=== PATIENT | female | born 1965 | race Caucasian/White ===

== ENCOUNTER 2024-01-12 08:04 | Outpatient (RCR) | payer BC, SELFPAY ==
--- NOTE | 2023-12-20 15:33 | CTCSNOTE_ITS ---
[facility] [address] [place], [place] [address] Simple Simulation Note Date: 12/20/2023 MR#: [id number] Name: DIEGO REEVES : 1965 Port was taken and the field size location and blocks were checked. (A) The port was noted to be in i deal position along with its blocks. Electronically signed by: Jean-Paul Soto MD, FANNYR 12/20/2023 3:31 PM
== END 2024-01-15 23:59 | disposition home or self-care (01) ==
LOC: SCTC 08:04
PROVIDERS: PCP Registered Nurse; Referring Provider Registered Nurse; Visit Provider Internal Medicine Hematology & Oncology
DX: Z51.0 Encounter for antineoplastic radiation therapy (principal); C50.512 Malignant neoplasm of lower-outer quadrant of left female breast; Z17.0 Estrogen receptor positive status [ER+]; Z17.32 Human epidermal growth factor receptor 2 negative status; Z17.21 Progesterone receptor positive status; Z90.12 Acquired absence of left breast and nipple
CPT/HCPCS: 77280; 77290; 77300; 77332; 77336; 77412; 77417

== ENCOUNTER 2024-02-02 08:19 | Outpatient (RCR) | payer BC, SELFPAY ==
--- NOTE | 2024-01-20 15:03 | CTCTRTNOTE_ITS ---
[facility] [address], [place] [address] Weekly Management Date: 01/20/2024 ?? Name: DIEGO LALA Meeks.: 1965 [id number] A. Patient is currently at 400 cGy.E boost B. Patient is tolerating treatment well. C. Completes XRT later thi week Electronically signed by: Jean-Paul Soto M.D. 01/20/2024 3:00 PM
== END 2024-02-15 23:59 | disposition home or self-care (01) ==
LOC: SCTC 08:19
PROVIDERS: PCP Registered Nurse; Referring Provider Registered Nurse; Visit Provider Internal Medicine Hematology & Oncology
DX: Z51.0 Encounter for antineoplastic radiation therapy (principal); C50.512 Malignant neoplasm of lower-outer quadrant of left female breast; Z90.12 Acquired absence of left breast and nipple; Z17.0 Estrogen receptor positive status [ER+]; Z17.21 Progesterone receptor positive status; Z17.32 Human epidermal growth factor receptor 2 negative status
CPT/HCPCS: 77336; 77412; 99212; G0463

== ENCOUNTER → 2024-02-22 | Outpatient (CLI) | payer BC, SELFPAY | END | disposition home or self-care (01) | LOC: SLDO 11:58 | PROVIDERS: PCP Nurse Practitioner Family; Referring Provider Nurse Practitioner Family; Visit Provider Nurse Practitioner Family | DX: N39.0 Urinary tract infection, site not specified (principal) | CPT/HCPCS: 87086; 87186 ==

== ENCOUNTER → 2024-05-23 | Outpatient (CLI) | payer BC, SELFPAY ==
[2024-05-23 08:39] LABS: Basophils % (Auto) 1 % (0-2.5); Eosinophils # (Auto) 0.1 Thou/mm3 (0.0-0.5); Eosinophils % (Auto) 3 % (0-10); Hematocrit 34.2 % (36.0-46.0); Hemoglobin 11.7 g/dL (12.0-16.0); Immature Granulocytes % (Auto) 0 % (0-0); Immature Granulocytes Auto 0.01 Thou/mm3 (0.00-0.00); Lymphocytes # (Auto) 0.9 Thou/mm3 (1.0-4.8); Lymphocytes % (Auto) 22 % (10-50); Mean Corpuscular HGB Conc 34.2 g/dl (31.0-37.0); Mean Corpuscular Hemoglobin 32.7 pg (25.0-35.0); Mean Corpuscular Volume 96 fL (80-100); Monocytes # (Auto) 0.4 Thou/mm3 (0.0-0.8); Monocytes % (Auto) 10 % (0-12); Neutrophils # (Auto) 2.4 Thou/mm3 (1.8-7.7); Neutrophils % (Auto) 64 % (37-80); Nucleated Red Blood Cell % 0 /100 WBC (0); Platelet Count 272 Thou/mm3 (140-440); Red Blood Count 3.58 Miln/mm3 (4.00-5.20); White Blood Count 3.8 Thou/mm3 (3.6-11.0)
[2024-05-23 08:56] LABS: Alanine Aminotransferase 12 U/L (10-49); Albumin, Serum 4.4 gm/dL (3.5-5.0); Alkaline Phosphatase 65 U/L (46-116); Anion Gap 8 (7-16); Aspartate Amino Transferase 17 U/L (0-34); BUN/Creatinine Ratio 14 Ratio (12-20); Bilirubin,Total 0.6 mg/dL (0.3-1.2); Blood Urea Nitrogen 14 mg/dL (9-23); Calcium 10.6 mg/dL (8.3-10.6); Calcium (Corrected) 10.6 mg/dL (8.5-10.1); Chloride 102 mMol/L (98-107); Globulin 2.2 gm/dL (2.3-3.5); Glucose 98 mg/dL (74-106); Osmolality,Calculated 274 (275-295); Potassium 4.6 mMol/L (3.4-5.1); Sodium 137 mMol/L (136-145); Total Protein 6.6 gm/dL (5.7-8.2); eGFR > 60 See Note
== END | disposition home or self-care (01) ==
PROVIDERS: PCP Family Medicine; Referring Provider Internal Medicine Hematology & Oncology; Visit Provider Internal Medicine Hematology & Oncology
DX: C50.512 Malignant neoplasm of lower-outer quadrant of left female breast (principal)
CPT/HCPCS: 36415; 80053; 85025

== ENCOUNTER 2024-07-05 15:45 | Outpatient (RCR) | payer BC, SELFPAY ==
--- NOTE | 2024-07-12 01:10 | CTCFLWUP_ITS ---
Patient: TOI REEVES : 1965 Page 2 of 2 FOLLOW UP NOTE DATE OF SERVICE: 07/05/2024 NAME: TOI REEVES ACCOUNT: [id number] : 1965 AGE: 58 INTERVAL HISTORY: Subjective: Chief Complaint Follow-up for left breast cancer treatment, discussion of medication side effects History of Present Illness toi Flowers, a 58-year-old female with a history of left breast cancer, presents for follow-up after 7 months. She was initially diagnosed with DCIS, underwent surgery with Dr. Scott, and completed 4000 radiation treatments. The patient reports improvement in her symptoms since switching from anastrozole to exemestane for her hormone therapy. She had previously experienced significant discomfort with anastrozole, describing it as making her miserable. The change in medication has resulted in better tolerance, with the patient stating, I think I don't feel as bad. She also mentions a resolution of recurrent urinary tract infections that she had been experiencing. At her last visit, the patient had an infection at the surgical site, which was treated with doxycycline and Betadine. She reports that the infection has now all healed up and notes that the scar is not bad at all. The patient has been compliant with her prescribed calcium and vitamin D3 supplements, as well as taking a multivitamin. The patient's right breast had previously shown an intraductal papilloma, which was non-cancerous. She denies any blood from the nipple and reports that her last mammogram was negative. She continues to undergo regular imaging, with her most recent right breast examination in March. Regarding her overall health, the patient mentions having a little bit of mitral valve prolapse. She also discloses a family history of Marfan-like features, particularly in her son, who is monitored for potential complications. Medications and Supplements - Anastrozole - Discontinued due to making patient miserable - Exemestane - Switched from anastrozole - Patient feeling better on this medication - Doxycycline - Given for infection - Betadine - Applied on skin for infection - Multivitamin - Vitamin D - Taking extra - Calcium Review of Systems Genitourinary: Negative for current urinary tract infections. Musculoskeletal: Positive for hyperextendible joints. Cardiovascular: Positive for mitral valve prolapse. Objective: Physical Examination General: Patient appears younger than stated age of 58. Skin: Healed infection site noted on breast. Scar present between skin lines, not highly visible. Area of previous infection has healed but not as desired. Musculoskeletal: Patient has very tall arms, very long arms. Joints may be hyperextendible. HEENT: Patient has very light eyes. Laboratory, Imaging, and Diagnostic Test Results - Oncotype DX: Score 8 - Tumor size: 1.6 centimeters - Mammogram (04/11/2024): Negative - Previous results: - Mammogram (09/2023): Negative (bilateral) ONCOLOGY HISTORY: DIAGNOSIS: Malignant neoplasm of lower-outer quadrant of left female breast [ICD10] C50.512 Malignant neoplasm of lower-outer quadrant of left female breast [ICD10] C50.512 DATE OF DIAGNOSIS: 09/15/2023 STAGE/TNM: 09/15/2023 left breast lesion needle core biopsy showed invasive lobular carcinoma of breast grade 2 lobular carcinoma in situ 10/22/2023 left breast send additional left new inferior posterior margin partial mastectomy showed invasive lobular carcinoma about 1.6 cm grade 2 low to intermediate nuclear grade ductal carcinoma 0.3 cm also atypical lobular hyperplasia final margins negative for invasive cancer DCIS present 1 mm from the blue inked new inferior margin 2 lymph nodes removed from the left axilla negative T1c N0 TREATMENT HISTORY: Care?Plan Start?Date Cycle Day Intent 11/29/2023 started on anastrozole HISTORY OF PRESENT ILLNESS: Patient is 58-year-old woman. Patient was complaining of lumps in her both breast which after biopsy was found to have cancer in the left breast. Right breast had a benign changes. Patient's Oncotype DX score came back as 8 and cancer was invasive lobular 1.6 cm. As Oncotype score is low no benefit of chemotherapy. Oncology history 09/15/2023 left breast lesion needle core biopsy showed invasive lobular carcinoma of breast grade 2 lobular carcinoma in situ 10/22/2023 left breast send additional left new inferior posterior margin partial mastectomy showed invasive lobular carcinoma about 1.6 cm grade 2 low to intermediate nuclear grade ductal carcinoma 0.3 cm also atypical lobular hyperplasia final margins negative for invasive cancer DCIS present 1 mm from the blue inked new inferior margin 2 lymph nodes removed from the left axilla negative T1c N0 11/16/2023 radiation therapy to the left breast 4000 cGy in 3 weeks with the possibility of boost Oncotype DX score 8 11/29/2023 started on anastrozole OTHER MEDICAL HISTORY/CONDITIONS: Left invasive lobular breast cancer - dx 09/15/23 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 apple cider vinegar - 600 mg 1 Capsule Daily 2. Betadine - 5 % 2 Application Daily 3. Claritin - 10 mg Daily 4. doxycycline hyclate - 100 mg 1 Capsule twice daily 5. exemestane - 25 mg 1 tab Daily 6. Hair Vitamins - 1 tab Twice a Day 7. lisinopril - 5 mg 1 tab Daily 8. metoprolol succinate - 25 mg Daily 9. multivitamin - 1 tab Daily 10. Naprosyn - 500 mg Twice a Day 11. Vitamin D3 - 400 unit 1 Capsule Daily?Palabra Meds? Medications Last Reconciled by Peggy Hawk MA on 07/05/2024 ALLERGIES: No Known Drug Allergies REVIEW OF SYSTEMS: A complete 14-point review of systems was performed and is negative except as noted in interval history. PHYSICAL EXAMINATION: VITAL SIGNS: Temperature?98.2, B/P?106/68, Oxygen?Saturation?96% PAIN: 0 - No pain ECOG Performance Status: 0 - Asymptomatic and fully active GENERAL APPEARANCE: Appears well, in no apparent distress, appropriately interactive. HEENT: Normocephalic, no temporal wasting, normal conjunctiva, no scleral icterus, normal hearing, lips without lesions, neck normal range of motion. CARDIOVASCULAR: Not assessed. PULMONARY: Normal respiratory effort, no respiratory distress or use of accessory muscles, speaking in full sentences, no tachypnea. EXTREMITIES: No pedal edema or cyanosis. SKIN: Normal skin appearance. NEUROLOGIC: Alert and oriented x4. PSHYCHIATRIC: Appropriate affect, mood normal, behavior normal, intact thought and speech. LABORATORY DATA: I have personally reviewed and interpreted each of the patient?s relevant lab tests, abnormal findings are below: Date 05/23/24 ??WHITE?BLOOD?COUNT?(Thou/mm3) 3.8 ??RED?BLOOD?COUNT?(Miln/mm3) 3.58?L ??HEMOGLOBIN?(gm/dl) 11.7?L ??HEMATOCRIT?(%) 34.2?L ??PLATELET?COUNT?(Thou/mm3) 272 ??NEUTROPHILS?%,?AUTO?(%) 64 ??LYMPH?%,?AUTO?(%) 22 ??NEUTROPHILS,?AUTO?(Thou/mm3) 2.4 ??GLUCOSE,RANDOM?(mg/dL) 98 ??BLOOD?UREA?NITROGEN?(mg/dL) 14 ??CREATININE?(mg/dL) 1.00 ??SODIUM?(mmol/L) 137 ??POTASSIUM?(mmol/L) 4.6 ??CHLORIDE?(mmol/L) 102 ??CrCl?(CandG)?(ml/min) 58.56 ??AST/SGOT?(Unit/L) 17 ??ALT/SGPT?(Unit/L) 12 ??ALKALINE?PHOSPHATASE?(Unit/L) 65 ??BILIRUBIN,?TOTAL?(mg/dL) 0.6 ??PROTEIN?TOTAL?(gm/dl) 6.6 ??ALBUMIN,?SERUM?(gm/dl) 4.4 ??GLOBULIN?(gm/dl) 2.2?L ??ALBUMIN/GLOBULIN?RATIO 2.0 ??CALCIUM,?SERUM?(mg/dL) 10.6 ??CALCIUM?SERUM?(CORRECTED)?(mg/dL) 10.6?H ASSESSMENT/PLAN: Assessment and Plan: toi Flowers, a 58-year-old female with a history of left breast cancer (DCIS), status post surgery and radiation, presenting for follow-up and management of hormone therapy side effects. Left Breast Cancer and left breast dcis (DCIS) Assessment: Patient with history of left breast DCIS, and later also invasive cancer status post surgery by Dr. Scott and 4000 radiation. Oncotype DX score was 8, tumor size 1.6 cm, indicating a very low-risk tumor. Recent mammogram in March was negative. Patient switched from anastrozole to exemestane due to intolerable side effects and is tolerating the new medication better. Recent infection at the surgical site has healed well, though there is some residual scarring. Plan: - Continue exemestane for hormone therapy - Apply coconut oil and massage breast daily, avoiding soap on the affected area - Consider tattooing for cosmetic improvement of the scar - Perform [facility] MRD test to monitor for residual cancer cells - Marcella to call patient in 3-4 weeks regarding test approval - Continue calcium and vitamin D supplementation - Perform bone density scan - Follow up in 6 months - Continue monitoring for a total of 10 years Right Breast Intraductal Papilloma Assessment: Patient has a history of non-cancerous intraductal papilloma in the right breast, currently being monitored. No blood noted from the nipple. Last mammogram was negative. Plan: - Continue monitoring as recommended by Dr. Dockery - Next bilateral mammogram scheduled for September Marfan-like Features Assessment: Patient presents with physical characteristics similar to Marfan syndrome, including very long arms and possibly hyperextendible joints. Patient reports a history of mitral valve prolapse. These features suggest a Marfan habitus, though not classic Marfan syndrome. Plan: - Monitor for any joint or cardiovascular symptoms - Advise patient to ensure her son receives appropriate screening and monitoring for Marfan-related conditions High Risk for Sun Damage Assessment: Patient has light-colored eyes, placing her at increased risk for sun damage and potential skin cancers, including melanoma. The [place] area has a high incidence of skin cancers due to sun exposure and environmental factors. Plan: - Educate on sun protection measures, including wearing a sun-brimmed hat - Advise regular skin checks and prompt reporting of any suspicious skin changes RETURN TO CLINIC: BILLING AND COMPLIANCE: I reviewed external records from providers outside my specialty as summarized above. I spent a total of 50 minutes on this patient?s care on the day of their visit excluding time spent related to any billed procedures. This time includes time spent with the patient as well as time spent documenting in the medical record, reviewing patients records and tests, obtaining history, placing orders, communicating with other healthcare professionals, counseling the patient, family or caregiver, and/or care coordination for the diagnoses above. Electronically Signed by: Alfonso Goldsmith MD T: 1:07 AM CC: PCP: Roro Nicole Referring: Roro Nicole This document was completed utilizing speech recognition software. Grammatical errors, random word insertions, pronoun errors, and incomplete sentences are an occasional consequence of this system due to software limitations, ambient noise, and hardware issues. Any formal questions or concerns about the content, text or information contained within the body of this dictation should be directly addressed to the provider for clarification.
== END 2024-07-15 23:59 | disposition home or self-care (01) ==
LOC: SCTC 15:45
PROVIDERS: PCP Family Medicine; Referring Provider Family Medicine; Visit Provider Internal Medicine Hematology & Oncology
DX: C50.512 Malignant neoplasm of lower-outer quadrant of left female breast (principal); Z79.811 Long term (current) use of aromatase inhibitors; Z92.3 Personal history of irradiation; D24.1 Benign neoplasm of right breast
CPT/HCPCS: 99212; G0463

== ENCOUNTER → 2024-07-27 | Outpatient (CLI) | payer BC, SELFPAY ==
[2024-07-27 08:26] LABS: Misc Send Out* See Sep Rpt
[2024-07-27 08:48] LABS: Basophils % (Auto) 0 % (0-2.5); Eosinophils # (Auto) 0.1 Thou/mm3 (0.0-0.5); Eosinophils % (Auto) 2 % (0-10); Hematocrit 31.8 % (36.0-46.0); Hemoglobin 11.6 g/dL (12.0-16.0); Immature Granulocytes % (Auto) 0 % (0-0); Immature Granulocytes Auto 0.01 Thou/mm3 (0.00-0.00); Lymphocytes % (Auto) 22 % (10-50); Mean Corpuscular HGB Conc 36.5 g/dl (31.0-37.0); Mean Corpuscular Volume 91 fL (80-100); Monocytes # (Auto) 0.4 Thou/mm3 (0.0-0.8); Monocytes % (Auto) 8 % (0-12); Neutrophils # (Auto) 3.2 Thou/mm3 (1.8-7.7); Neutrophils % (Auto) 68 % (37-80); Nucleated Red Blood Cell % 0 /100 WBC (0); Platelet Count 266 Thou/mm3 (140-440); Red Blood Count 3.51 Miln/mm3 (4.00-5.20); White Blood Count 4.7 Thou/mm3 (3.6-11.0)
== END | disposition home or self-care (01) ==
PROVIDERS: PCP Family Medicine; Referring Provider Internal Medicine Hematology & Oncology; Visit Provider Internal Medicine Hematology & Oncology
DX: C50.512 Malignant neoplasm of lower-outer quadrant of left female breast (principal)
CPT/HCPCS: 36415; 85025

== ENCOUNTER 2024-08-09 08:52 | Outpatient (RCR) | payer BC, SELFPAY ==
--- NOTE | 2024-08-09 13:57 | CTCFLWUP_ITS ---
[facility] [address], [place] [address] FOLLOW-UP NOTE Date: 08/09/2024 MR#: [id number] Name: DIEGO REEVES : 1965 Dx: C50.512 Malignant neoplasm of lower-outer quadrant of left female breast Identification. Stage IA ([id number]) receptor positive HER2 not overexpressed invasive lobular carcinoma left breast status post tylectomy 2 sentinel nodes mammoplasty 10/22/2023. Oncotype DX 8 Completed postop XRT 4000 cGy plus E boost. Completed 01/20/2024. Tolerated treatment well and as I see patient today there is good cosmetic appearance of the treated breast. Currently taking exemestane under Dr. Goldsmith's direction. Good cosmetic reaction of the prior radiation therapy with no sign of recurrence. I will see her as needed in the future. Electronically signed by: Jean-Paul Soto M.D. 08/09/2024 1:55 PM
== END 2024-08-14 23:59 | disposition home or self-care (01) ==
LOC: SCTC 08:52
PROVIDERS: PCP Family Medicine; Referring Provider Family Medicine; Visit Provider Radiology Therapeutic Radiology
DX: C50.512 Malignant neoplasm of lower-outer quadrant of left female breast (principal); Z17.0 Estrogen receptor positive status [ER+]; Z17.21 Progesterone receptor positive status; Z17.32 Human epidermal growth factor receptor 2 negative status; Z92.3 Personal history of irradiation; Z79.811 Long term (current) use of aromatase inhibitors
CPT/HCPCS: 99213; G0463

== ENCOUNTER → 2025-01-08 | Outpatient (CLI) | payer BC, SELFPAY ==
[2025-01-08 08:33] LABS: Basophils # (Auto) 0.0 Thou/mm3 (0.0-0.2); Basophils % (Auto) 0 % (0-2.5); Eosinophils # (Auto) 0.0 Thou/mm3 (0.0-0.5); Eosinophils % (Auto) 1 % (0-10); Hematocrit 36.2 % (36.0-46.0); Hemoglobin 12.4 g/dL (12.0-16.0); Immature Granulocytes Auto 0.01 Thou/mm3 (0.00-0.00); Lymphocytes # (Auto) 1.0 Thou/mm3 (1.0-4.8); Lymphocytes % (Auto) 18 % (10-50); Mean Corpuscular HGB Conc 34.3 g/dl (31.0-37.0); Mean Corpuscular Hemoglobin 31.7 pg (25.0-35.0); Mean Corpuscular Volume 93 fL (80-100); Monocytes # (Auto) 0.3 Thou/mm3 (0.0-0.8); Monocytes % (Auto) 6 % (0-12); Neutrophils # (Auto) 4.1 Thou/mm3 (1.8-7.7); Neutrophils % (Auto) 75 % (37-80); Nucleated Red Blood Cell # 0.00 Thou/mm3 (0.00-0.00); Nucleated Red Blood Cell % 0 /100 WBC (0); Platelet Count 281 Thou/mm3 (140-440); RDW Standard Deviation 42.3 fL (36.4-46.3); Red Blood Count 3.91 Miln/mm3 (4.00-5.20); White Blood Count 5.4 Thou/mm3 (3.6-11.0)
[2025-01-08 08:59] LABS: Alanine Aminotransferase 12 U/L (10-49); Albumin, Serum 4.7 gm/dL (3.4-4.8); Albumin/Globulin Ratio 2.2 (1.2-2.2); Alkaline Phosphatase 75 U/L (46-116); Anion Gap 9 (7-16); Aspartate Amino Transferase 18 U/L (0-34); BUN/Creatinine Ratio 10 Ratio (12-20); Bilirubin,Total 0.4 mg/dL (0.3-1.2); Blood Urea Nitrogen 10 mg/dL (9-23); Calcium 10.2 mg/dL (8.3-10.6); Calcium (Corrected) 10.2 mg/dL (8.5-10.1); Carbon Dioxide 28.4 mMol/L (20.0-31.0); Cardiac Risk Estimate 1.9 RATIO (3.7-5.6); Chloride 104 mMol/L (98-107); Cholesterol 222 mg/dL (132-200); Creatinine (Component) 1.0 mg/dL (0.6-1.3); Globulin 2.1 gm/dL (2.3-3.5); Glucose 101 mg/dL (74-106); HDL Cholesterol 114 mg/dL (40-60); LDL Cholesterol,Calculated 89 mg/dL (0-130); Osmolality,Calculated 280 (275-295); Potassium 4.0 mMol/L (3.4-5.1); Sodium 141 mMol/L (136-145); Thyroid Stimulating Hormone 0.56 uIU/mL (0.55-4.78); Total Protein 6.8 gm/dL (5.7-8.2); Triglycerides 96 mg/dL (30-150); eGFR > 60 See Note
[2025-01-08 09:04] LABS: CA 15-3 15.7 U/mL (<32.4)
== END | disposition home or self-care (01) ==
PROVIDERS: PCP Family Medicine; Referring Provider Internal Medicine Hematology & Oncology; Visit Provider Nurse Practitioner Family
DX: Z00.00 Encounter for general adult medical examination without abnormal findings (principal); C50.512 Malignant neoplasm of lower-outer quadrant of left female breast
CPT/HCPCS: 36415; 80053; 80061; 84443; 85025; 86300

== ENCOUNTER 2025-01-09 10:45 | Outpatient (RCR) | payer BC, SELFPAY ==
--- NOTE | 2025-01-09 11:49 | CTCFLWUP_ITS ---
Patient: TOI REEVES : 1965 Page 2 of 2 FOLLOW UP NOTE DATE OF SERVICE: 01/09/2025 NAME: TOI REEVES ACCOUNT: [id number] : 1965 AGE: 59 INTERVAL HISTORY: Subjective: Patient doing well . could nto tolerate exemestane and stopped it. Takes calcium and multivitamin Chief Complaint Follow-up for left breast cancer treatment, discussion of medication side effects History of Present Illness toi Flowers, a 59-year-old female with a history of left breast cancer, presents for follow-up after 7 months. She was initially diagnosed with DCIS, underwent surgery with Dr. Scott, and completed 4000 radiation treatments. The patient reports improvement in her symptoms since switching from anastrozole to exemestane for her hormone therapy. She had previously experienced significant discomfort with anastrozole, describing it as making her miserable. The change in medication has resulted in better tolerance, with the patient stating, I think I don't feel as bad. She also mentions a resolution of recurrent urinary tract infections that she had been experiencing. At her last visit, the patient had an infection at the surgical site, which was treated with doxycycline and Betadine. She reports that the infection has now all healed up and notes that the scar is not bad at all. The patient has been compliant with her prescribed calcium and vitamin D3 supplements, as well as taking a multivitamin. The patient's right breast had previously shown an intraductal papilloma, which was non-cancerous. She denies any blood from the nipple and reports that her last mammogram was negative. She continues to undergo regular imaging, with her most recent right breast examination in March. Regarding her overall health, the patient mentions having a little bit of mitral valve prolapse. She also discloses a family history of Marfan-like features, particularly in her son, who is monitored for potential complications. Medications and Supplements - Anastrozole - Discontinued due to making patient miserable - Exemestane - Switched from anastrozole - Patient feeling better on this medication - Doxycycline - Given for infection - Betadine - Applied on skin for infection - Multivitamin - Vitamin D - Taking extra - Calcium Review of Systems Genitourinary: Negative for current urinary tract infections. Musculoskeletal: Positive for hyperextendible joints. Cardiovascular: Positive for mitral valve prolapse. Objective: Physical Examination General: Patient appears younger than stated age of 58. Skin: Healed infection site noted on breast. Scar present between skin lines, not highly visible. Area of previous infection has healed but not as desired. Musculoskeletal: Patient has very tall arms, very long arms. Joints may be hyperextendible. HEENT: Patient has very light eyes. Laboratory, Imaging, and Diagnostic Test Results - Oncotype DX: Score 8 - Tumor size: 1.6 centimeters - Mammogram (04/11/2024): Negative - Previous results: - Mammogram (09/2023): Negative (bilateral) ONCOLOGY HISTORY:?[facility] Hx? DIAGNOSIS: Malignant neoplasm of lower-outer quadrant of left female breast [ICD10] C50.512 Malignant neoplasm of lower-outer quadrant of left female breast [ICD10] C50.512 DATE OF DIAGNOSIS: 09/15/2023 STAGE/TNM: 09/15/2023 left breast lesion needle core biopsy showed invasive lobular carcinoma of breast grade 2 lobular carcinoma in situ 10/22/2023 left breast send additional left new inferior posterior margin partial mastectomy showed invasive lobular carcinoma about 1.6 cm grade 2 low to intermediate nuclear grade ductal carcinoma 0.3 cm also atypical lobular hyperplasia final margins negative for invasive cancer DCIS present 1 mm from the blue inked new inferior margin 2 lymph nodes removed from the left axilla negative T1c N0 TREATMENT HISTORY: Care?Plan Start?Date Cycle Day Intent HISTORY OF PRESENT ILLNESS: Patient is 59-year-old woman. Patient was complaining of lumps in her both breast which after biopsy was found to have cancer in the left breast. Right breast had a benign changes. Patient's Oncotype DX score came back as 8 and cancer was invasive lobular 1.6 cm. As Oncotype score is low no benefit of chemotherapy. Oncology history 09/15/2023 left breast lesion needle core biopsy showed invasive lobular carcinoma of breast grade 2 lobular carcinoma in situ 10/22/2023 left breast send additional left new inferior posterior margin partial mastectomy showed invasive lobular carcinoma about 1.6 cm grade 2 low to intermediate nuclear grade ductal carcinoma 0.3 cm also atypical lobular hyperplasia final margins negative for invasive cancer DCIS present 1 mm from the blue inked new inferior margin 2 lymph nodes removed from the left axilla negative T1c N0 11/16/2023 radiation therapy to the left breast 4000 cGy in 3 weeks with the possibility of boost Oncotype DX score 8 11/29/2023 started on anastrozole OTHER MEDICAL HISTORY/CONDITIONS: Left invasive lobular breast cancer - dx 09/15/23 Mitral valve prolapse - 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 apple cider vinegar - 600 mg 1 Capsule Daily 2. Betadine - 5 % 2 Application Daily 3. Claritin - 10 mg Daily 4. doxycycline hyclate - 100 mg 1 Capsule twice daily 5. Hair Vitamins - 1 tab Twice a Day 6. lisinopril - 5 mg 1 tab Daily 7. metoprolol succinate - 25 mg Daily 8. multivitamin - 1 tab Daily 9. Naprosyn - 500 mg Twice a Day 10. tamoxifen - 10 mg 1 tab Daily 11. Vitamin D3 - 400 unit 1 Capsule Daily?Palabra Meds? Medications Last Reconciled by Brandi Hager MD on 01/09/2025 ALLERGIES: No Known Drug Allergies REVIEW OF SYSTEMS: A complete 14-point review of systems was performed and is negative except as noted in interval history. PHYSICAL EXAMINATION:?[facility] PE? VITAL SIGNS: Temperature?96.8, B/P?163/99, Oxygen?Saturation?98% Weight?133?lbs PAIN: 0 - No pain ECOG Performance Status: 0 - Asymptomatic and fully active GENERAL APPEARANCE: Appears well, in no apparent distress, appropriately interactive. HEENT: Normocephalic, no temporal wasting, normal conjunctiva, no scleral icterus, normal hearing, lips without lesions, neck normal range of motion. CARDIOVASCULAR: Not assessed. PULMONARY: Normal respiratory effort, no respiratory distress or use of accessory muscles, speaking in full sentences, no tachypnea. EXTREMITIES: No pedal edema or cyanosis. SKIN: Normal skin appearance. NEUROLOGIC: Alert and oriented x4. PSHYCHIATRIC: Appropriate affect, mood normal, behavior normal, intact thought and speech. LABORATORY DATA: I have personally reviewed and interpreted each of the patient?s relevant lab tests, abnormal findings are below: Date 05/23/24 07/27/24 01/08/25 ??WHITE?BLOOD?COUNT?(Thou/mm3) 3.8 4.7 5.4 ??RED?BLOOD?COUNT?(Miln/mm3) 3.58?L 3.51?L 3.91?L ??HEMOGLOBIN?(gm/dl) 11.7?L 11.6?L 12.4 ??HEMATOCRIT?(%) 34.2?L 31.8?L 36.2 ??PLATELET?COUNT?(Thou/mm3) 272 266 281 ??NEUTROPHILS?%,?AUTO?(%) 64 68 75 ??LYMPH?%,?AUTO?(%) 22 22 18 ??NEUTROPHILS,?AUTO?(Thou/mm3) 2.4 3.2 4.1 ??GLUCOSE,RANDOM?(mg/dL) ? ? 101 ??BLOOD?UREA?NITROGEN?(mg/dL) ? ? 10 ??CREATININE?(mg/dL) ? ? 1.00 ??SODIUM?(mmol/L) ? ? 141 ??POTASSIUM?(mmol/L) ? ? 4.0 ??CHLORIDE?(mmol/L) ? ? 104 ??CrCl?(CandG)?(ml/min) ? ? 58.69 ??AST/SGOT?(Unit/L) ? ? 18 ??ALT/SGPT?(Unit/L) ? ? 12 ??ALKALINE?PHOSPHATASE?(Unit/L) ? ? 75 ??BILIRUBIN,?TOTAL?(mg/dL) ? ? 0.4 ??PROTEIN?TOTAL?(gm/dl) ? ? 6.8 ??ALBUMIN,?SERUM?(gm/dl) ? ? 4.7 ??GLOBULIN?(gm/dl) ? ? 2.1?L ??ALBUMIN/GLOBULIN?RATIO ? ? 2.2 ??CALCIUM,?SERUM?(mg/dL) ? ? 10.2 ??CALCIUM?SERUM?(CORRECTED)?(mg/dL) ? ? 10.2?H ASSESSMENT/PLAN:?Kelby Goldsmith Assessment/Plan? Assessment and Plan: toi Flowers, a 59-year-old female with a history of left breast cancer (DCIS), status post surgery and radiation, presenting for follow-up and management of hormone therapy side effects. Left Breast Cancer and left breast dcis (DCIS) Assessment: Patient with history of left breast DCIS, and later also invasive cancer status post surgery by Dr. Scott and 4000 radiation. Oncotype DX score was 8, tumor size 1.6 cm, indicating a very low-risk tumor. Recent mammogram in March was negative. Patient switched from anastrozole to exemestane due to intolerable side effects and is tolerating the new medication better. Recent infection at the surgical site has healed well, though there is some residual scarring. Plan: Switched to tamoxifen Continue calcium and vitamin D and do not take extra calcium Will get a bone density Right Breast Intraductal Papilloma Assessment: Patient has a history of non-cancerous intraductal papilloma in the right breast, currently being monitored. No blood noted from the nipple. Last mammogram was negative. Plan: - Continue monitoring as recommended by Dr. Dockery Mammogram results are not in chart will get records Marfan-like Features Assessment: Patient presents with physical characteristics similar to Marfan syndrome, including very long arms and possibly hyperextendible joints. Patient reports a history of mitral valve prolapse. These features suggest a Marfan habitus, though not classic Marfan syndrome. Plan: Followed up with Dr. Michael and echocardiogram is completed but no results High Risk for Sun Damage Assessment: Patient has light-colored eyes, placing her at increased risk for sun damage and potential skin cancers, including melanoma. The [place] area has a high incidence of skin cancers due to sun exposure and environmental factors. Plan: - Educate on sun protection measures, including wearing a sun-brimmed hat - Advise regular skin checks and prompt reporting of any suspicious skin changes ORDERS: Order # Description RETURN TO CLINIC: I reviewed the diagnosis, prognosis, and recommended treatment/procedure options with the patient (and/or their legal bilingual sales representative), including the potential benefits, risks, side effects and alternative therapies. We also discussed the option of no treatment and the possibility of clinical trial participation, if applicable. All questions were addressed, and they demonstrated understanding. They provided informed consent to proceed with the proposed plan of care. BILLING AND COMPLIANCE: I reviewed external records from providers outside my specialty as summarized above. I spent a total of 50 minutes on this patient?s care on the day of their visit excluding time spent related to any billed procedures. This time includes time spent with the patient as well as time spent documenting in the medical record, reviewing patients records and tests, obtaining history, placing orders, communicating with other healthcare professionals, counseling the patient, family or caregiver, and/or care coordination for the diagnoses above. Electronically Signed by: Alfonso Goldsmith MD T: 11:47 AM CC: PCP: Roro Nicole Referring: Roro Nicole This document was completed utilizing speech recognition software. Grammatical errors, random word insertions, pronoun errors, and incomplete sentences are an occasional consequence of this system due to software limitations, ambient noise, and hardware issues. Any formal questions or concerns about the content, text or information contained within the body of this dictation should be directly addressed to the provider for clarification.
== END 2025-01-14 23:59 | disposition home or self-care (01) ==
LOC: SCTC 10:45
PROVIDERS: PCP Family Medicine; Referring Provider Family Medicine; Visit Provider Internal Medicine Hematology & Oncology
DX: C50.512 Malignant neoplasm of lower-outer quadrant of left female breast (principal); Z17.0 Estrogen receptor positive status [ER+]; Z17.21 Progesterone receptor positive status; Z17.32 Human epidermal growth factor receptor 2 negative status; Z92.3 Personal history of irradiation; Z79.811 Long term (current) use of aromatase inhibitors; Z71.89 Other specified counseling
CPT/HCPCS: 99212; G0463